=== PATIENT | male | born 1960 | race Caucasian/White ===

== ENCOUNTER 2020-05-04 13:11 | Emergency (ER) | payer BC ==
[~2020-05-04] VITALS: Ht 177.8 cm; Wt 99.8 kg
[2020-05-04] MEDS ORDERED: HYDROMORPHONE 1 MG/1 ML DISP.SYRIN ONE (13:28)
[2020-05-04] MEDS ORDERED: PANTOPRAZOLE SODIUM 40 MG VIAL ONE (13:28)
[2020-05-04] MEDS ORDERED: ONDANSETRON 4 MG/2 ML VIAL ONE (13:28)
[2020-05-04] MEDS ORDERED: PANTOPRAZOLE SODIUM 40 MG VIAL IV ONE (13:30)
[2020-05-04] MEDS ORDERED: ONDANSETRON 4 MG/2 ML VIAL IV ONE (13:30)
[2020-05-04] MEDS ORDERED: HYDROMORPHONE 1 MG/1 ML DISP.SYRIN IV ONE (13:30)
[2020-05-04] MEDS ORDERED: IV NORMAL SALINE 1000 ML BAG IV ONE (13:30)
--- NOTE | 2020-05-04 13:35 | NUR ---
Pt out of ER for CT.
[2020-05-04 13:42] LABS: BASOPHILS # (AUTO) 0.2 K/uL (0.0-8.0); BASOPHILS % (AUTO) 1.8 % (0.0-2.0); EOSINOPHILS # (AUTO) 0.1 K/uL (0.0-0.7); EOSINOPHILS % (AUTO) 0.4 % (0.0-7.0); HEMATOCRIT 41.1 % (36.7-47.1); HEMOGLOBIN 13.7 g/dL (12.5-16.3); LYMPHOCYTES # (AUTO) 1.2 K/uL (20.0-40.0); LYMPHOCYTES % (AUTO) 10.2 % (20.5-51.5); MEAN CORPUSCULAR HEMOGLOBIN 29.6 uug (23.8-33.4); MEAN CORPUSCULAR HGB CONC 33 g/dL (32.5-36.3); MEAN CORPUSCULAR VOLUME 88.7 fL (73.0-96.2); MONOCYTES # (AUTO) 0.5 K/uL (2.0-10.0); MONOCYTES % (AUTO) 4.8 % (0.0-11.0); NEUTROPHILS # (AUTO) 9.3 K/uL (1.8-8.9); NEUTROPHILS % (AUTO) 82.8 % (38.5-71.5); PLATELET COUNT (AUTO) 308 K/uL (152-348); RED BLOOD CELL COUNT(AUTO) 4.64 MIL/uL (4.06-5.63); WHITE BLOOD COUNT (AUTO) 11.2 K/uL (3.6-10.2)
[2020-05-04 13:48] LABS: BILIRUBIN,DIRECT 0.3 mg/dL (0.0-0.2); BILIRUBIN,TOTAL 0.6 mg/dL (0.2-1.0); CREATININE 1.1 mg/dL (0.6-1.3); POTASSIUM 3.2 mmol/L (3.5-5.1); TOTAL PROTEIN, SERUM 6.8 g/dL (6.4-8.2)
[2020-05-04] MEDS ORDERED: POTASSIUM CHLORIDE 20 MEQ TAB.PRT.SR PO ONE (14:00)
[2020-05-04] MEDS ORDERED: POTASSIUM CHLORIDE 20 MEQ TAB.PRT.SR ONE (14:05)
--- NOTE | 2020-05-04 14:10 | NUR ---
Pt denies pain/nausea. Able to tolorate fluids.
--- NOTE | 2020-05-04 14:38 | NUR ---
IV removed. Catheter intact and site benign. Pressure and 4x4 gauze applied to site. No bleeding noted.
[2020-05-04 14:39] VITALS: BP 132/89
--- NOTE | 2020-05-04 14:39 | NUR ---
Patient discharged to home in stable condition. Written and verbal after care instructions given. Patient verbalizes understanding of instructions. Stressed follow up or return to ER for worsening s/s.
== END 2020-05-04 14:40 | disposition home or self-care (01) ==
LOC: ER 13:11
DX: K52.9 Noninfective gastroenteritis and colitis, unspecified (principal); I11.9 Hypertensive heart disease without heart failure; Z20.822 Contact with and (suspected) exposure to COVID-19; K57.30 Diverticulosis of large intestine without perforation or abscess without bleeding
CPT/HCPCS: 71045; 74176; 80048; 80076; 83605; 83690; 84484; 85025; 85730; 87426; 93005; 96361; 96374; 96375; 99285; C9113; J1170; J2405; U0003; 70030-TC; A4663; J7030

== ENCOUNTER 2020-08-20 11:49 | Inpatient (IN) | payer BC ==
[~2020-08-20] VITALS: Ht 177.8 cm; Wt 90.7 kg
[2020-08-20] MEDS ORDERED: MORPHINE SULFATE 2 MG/1 ML DISP.SYRIN IV ONE (12:00)
[2020-08-20] MEDS ORDERED: ONDANSETRON 4 MG/2 ML VIAL IV ONE (12:00)
[2020-08-20] MEDS ORDERED: IV NORMAL SALINE 1000 ML BAG IV ONE (12:00)
[2020-08-20] MEDS ORDERED: ONDANSETRON 4 MG/2 ML VIAL ONE (12:02)
[2020-08-20] MEDS ORDERED: MORPHINE SULFATE 4 MG/1 ML DISP.SYRIN ONE ×2 (12:02→15:59)
[2020-08-20 12:21] LABS: BASOPHILS # (AUTO) 0.1 K/uL (0.0-8.0); BASOPHILS % (AUTO) 0.4 % (0.0-2.0); EOSINOPHILS # (AUTO) 0.2 K/uL (0.0-0.7); EOSINOPHILS % (AUTO) 1.5 % (0.0-7.0); HEMATOCRIT 41.7 % (36.7-47.1); HEMOGLOBIN 13.7 g/dL (12.5-16.3); LYMPHOCYTES % (AUTO) 6.7 % (20.5-51.5); MEAN CORPUSCULAR HGB CONC 33 g/dL (32.5-36.3); MEAN CORPUSCULAR VOLUME 88.1 fL (73.0-96.2); MONOCYTES # (AUTO) 0.8 K/uL (2.0-10.0); MONOCYTES % (AUTO) 5.1 % (0.0-11.0); NEUTROPHILS # (AUTO) 13.6 K/uL (1.8-8.9); NEUTROPHILS % (AUTO) 86.3 % (38.5-71.5); PLATELET COUNT (AUTO) 266 K/uL (152-348); RED BLOOD CELL COUNT(AUTO) 4.74 MIL/uL (4.06-5.63); WHITE BLOOD COUNT (AUTO) 15.7 K/uL (3.6-10.2)
[2020-08-20 12:26] LABS: BILIRUBIN,DIRECT 0.2 mg/dL (0.0-0.2); BILIRUBIN,TOTAL 0.5 mg/dL (0.2-1.0); POTASSIUM 3.8 mmol/L (3.5-5.1); TOTAL PROTEIN, SERUM 6.4 g/dL (6.4-8.2)
[2020-08-20] MEDS ORDERED: PIPERACILLIN SODIUM/TAZOBACTAM 3.375 G in IV DEXTROSE 5% 50 ML IV ONE (12:45)
[2020-08-20] MEDS ORDERED: IOHEXOL 300MG/ML 100 ML INFUS..BTL ONE (12:51)
[2020-08-20] MEDS ORDERED: SWABABLE VALVE TRANSFER SET EA MC ONE (12:52)
[2020-08-20] MEDS ORDERED: IV NORMAL SALINE 250 ML IV ONE (12:52)
[2020-08-20] MEDS ORDERED: PIPERACILLIN/TAZOBACTAM/D5W 50 ML IV ONE (13:32)
[2020-08-20 13:46] LABS: *BILIRUBIN,URIN NEGATIVE (NEGATIVE); *BLOOD, URINE NEGATIVE (NEGATIVE); *CLARITY,URINE CLEAR (CLEAR); *COLOR,URINE YELLOW (YELLOW); *KETONES,URINE NEGATIVE (NEGATIVE); *UROBILINOGEN,URINE 0.2 E.U./dl (NORMAL); LEUKOCYTE ESTERASE ,URINE NEGATIVE (NEGATIVE); NITRITE, URINE NEGATIVE (NEGATIVE); UGLUCOSE NEGATIVE (NEGATIVE)
[2020-08-20 14:00] LABS: *AMPHETAMINE, URINE NEGATIVE (NEGATIVE); *CANNABINOID, URINE POSITIVE (NEGATIVE); *COCCAINE, URINE NEGATIVE (NEGATIVE); *OPIATE, URINE POSITIVE (NEGATIVE); *PHENCYCLIDINE SCREEN,URINE NEGATIVE (NEGATIVE)
[2020-08-20] MEDS ORDERED: MARIJUANA (14:05)
--- NOTE | 2020-08-20 14:05 | NUR ---
Patient is resting comfortably on gurney with eyes closed, calm & breathing easily ,for disposition@this time, NAD.
--- NOTE | 2020-08-20 15:38 | NUR ---
Patient refused to be admitted. Dr Belcher notified.
[2020-08-20] MEDS ORDERED: MORPHINE SULFATE 4 MG/1 ML DISP.SYRIN IV ONE (16:00)
--- NOTE | 2020-08-20 16:07 | NUR ---
Patient is consenting to admission@this time.
[2020-08-20 17:07] VITALS: BP 129/84
[2020-08-20] MEDS ORDERED: LISI1TAB55 PO (17:59)
[2020-08-20] MEDS ORDERED: ATOR40TA PO (18:05)
[2020-08-20] MEDS ORDERED: FINA5TAB11 PO (18:05)
[2020-08-20] MEDS ORDERED: TRAZ-182 PO (18:05)
[2020-08-20] MEDS ORDERED: ONDA4TAB5 PO (18:05)
[2020-08-20] MEDS ORDERED: LAMO100T17 PO (18:05)
[2020-08-20] MEDS ORDERED: BUPR-53 PO (18:05)
[2020-08-20] MEDS ORDERED: ESCI10TA PO (18:05)
[2020-08-20] MEDS ORDERED: TOPI25TA PO (18:05)
[2020-08-20] MEDS ORDERED: TAMS-3 PO (18:05)
[2020-08-20] MEDS ORDERED: PANT40TA49 PO (18:05)
--- NOTE | 2020-08-20 18:12 | NUR ---
Patient was admitted from the ER, IV was accidentally dislodged by patient while changing into a gown. Patient medication list obtained from patients pharmacy in [place]. Patient oriented to room, and call light. Bed in low position, side rails up x2. Call light in reach. Patient stable on room air, Vitals WNL.
[2020-08-20] MEDS ORDERED: Z GUARD REMEDY PASTE 57 GM TUBE TOP PRN (18:30)
[2020-08-20] MEDS ORDERED: HYDROCODONE/APAP 5-325MG TABLET PO PRN (18:30)
[2020-08-20] MEDS ORDERED: ONDANSETRON 4 MG/2 ML VIAL IV PRN (18:30)
[2020-08-20] MEDS ORDERED: ZOLPIDEM 5 MG TABLET PO PRN (18:30)
[2020-08-20] MEDS ORDERED: ACETAMINOPHEN 325 MG TABLET PO PRN (18:30)
[2020-08-20] MEDS ORDERED: MAGNESIUM HYDROXIDE 30 ML LIQUID UDC PO PRN (18:30)
[2020-08-20] MEDS: MORPHINE SULFATE 2 MG/1 ML DISP.SYRIN IV PRN (19:24)
[2020-08-20] MEDS: IV D5 1/2 NS 1000 ML 1,000 ML IV PRN (19:30)
--- NOTE | 2020-08-20 19:42 | NUR ---
Received pt resting in bed. AAO x4. No acute distress noted. C/o 8/10 abdominal pain, PRN IV Morphine given as ordered. IV on left forearm, running D5 1/2 NS at 75cc/ hr. NPO order status maintained, pt educated and aware. Safety measures maintained. Call light and personal items within reach. Will continue to monitor.
[2020-08-20 19:59] VITALS: BP 115/71
[2020-08-21] MEDS: MORPHINE SULFATE 2 MG/1 ML DISP.SYRIN IV PRN ×4 (02:20→17:12)
[2020-08-21 04:55] VITALS: BP 110/68
[2020-08-21 06:25] LABS: BASOPHILS % (AUTO) 0.6 % (0.0-2.0); EOSINOPHILS # (AUTO) 0.3 K/uL (0.0-0.7); EOSINOPHILS % (AUTO) 4.7 % (0.0-7.0); HEMATOCRIT 37.4 % (36.7-47.1); HEMOGLOBIN 12.5 g/dL (12.5-16.3); LYMPHOCYTES % (AUTO) 29.5 % (20.5-51.5); MEAN CORPUSCULAR HEMOGLOBIN 29.7 uug (23.8-33.4); MEAN CORPUSCULAR HGB CONC 34 g/dL (32.5-36.3); MEAN CORPUSCULAR VOLUME 88.7 fL (73.0-96.2); MONOCYTES # (AUTO) 0.6 K/uL (2.0-10.0); MONOCYTES % (AUTO) 8.8 % (0.0-11.0); NEUTROPHILS # (AUTO) 3.7 K/uL (1.8-8.9); NEUTROPHILS % (AUTO) 56.4 % (38.5-71.5); PLATELET COUNT (AUTO) 221 K/uL (152-348); RED BLOOD CELL COUNT(AUTO) 4.22 MIL/uL (4.06-5.63); WHITE BLOOD COUNT (AUTO) 6.6 K/uL (3.6-10.2)
[2020-08-21 06:48] LABS: MAGNESIUM 2.1 mg/dL (1.8-2.4); PHOSPHOROUS 3.6 mg/dL (2.5-4.9); POTASSIUM 3.6 mmol/L (3.5-5.1)
--- NOTE | 2020-08-21 07:30 | NUR ---
START OF SHIFT: pt in bed resting, a/ox4 c/o abd pain. pt on RA no signs of distress, no complaints of pain at this time. pt AMB with BRP, NPO for MRCP procedure. pt has left FA 20g infusing D51/2 NS at 75cc/hr. pt stated "I will go AMA if the GI doctor does not come to see me, I could be doing the same thing at home". MD made aware, bed low and locked, call light within reach, safety precautions in place.
[2020-08-21 08:00] VITALS: BP 100/58
[2020-08-21] MEDS ORDERED: PANTOPRAZOLE SODIUM 40 MG VIAL IV SCH (09:00)
[2020-08-21] MEDS: IV D5 1/2 NS 1000 ML 1,000 ML IV PRN (09:27)
--- NOTE | 2020-08-21 13:05 | NUR ---
pt left via ambulance for MRCP at [facility]. pt took belongings with him
[2020-08-21] MEDS ORDERED: IV D5 1/2 NS 1000 ML 1,000 ML IV PRN (13:45)
--- NOTE | 2020-08-21 14:40 | NUR ---
pt back from procedure, resting in bed, will continue with plan of care.
[2020-08-21 16:07] VITALS: BP 122/77
--- NOTE | 2020-08-21 17:09 | NUR ---
Pt left [facility] according to security cameras. I walked in to pts room at 1705 to check on pt, he was upset that he was still NPO for the night and that he was not going to get his other medications until tomorrow morning. I asked him if he wanted his pain medications since they were due, he agreed and asked for his morphine. I went to get the medication right away and was going to administer the morphine at 1712, when I noticed that the patient was no longer in the room, I notified the charge nurse and change house attendant. Pt left with all belongings. Addendum: 08/21/20 at 1822 by CASPER PRABHAKAR RN pt left with IV in FA and ID band on
[2020-08-21] MEDS ORDERED: TRAZODONE 50 MG TABLET PO SCH (18:00)
--- NOTE | 2020-08-21 18:40 | NUR ---
made aware of pt eloping from hospital
[2020-08-21] MEDS ORDERED: TOPIRAMATE 25 MG TABLET PO SCH (21:00)
[2020-08-21] MEDS ORDERED: ATORVASTATIN 40 MG TABLET PO SCH (21:00)
[2020-08-22] MEDS ORDERED: FINASTERIDE 5 MG TABLET PO SCH (09:00)
[2020-08-22] MEDS ORDERED: HYDROCHLOROTHIAZIDE 12.5 MG CAPSULE PO SCH (09:00)
[2020-08-22] MEDS ORDERED: buPROPion XL 150 MG TAB.SR.24H PO SCH (09:00)
[2020-08-22] MEDS ORDERED: LISINOPRIL PO SCH (09:00)
[2020-08-22] MEDS ORDERED: LISINOPRIL 20 MG TABLET PO SCH (09:00)
[2020-08-22] MEDS ORDERED: TAMSULOSIN HCL 0.4 MG CAP.SR.24H PO SCH (09:00)
[2020-08-22] MEDS ORDERED: LAMOTRIGINE 100 MG TABLET PO SCH (09:00)
[2020-08-22] MEDS ORDERED: HCTZ PO SCH (09:00)
[2020-08-22] MEDS ORDERED: ESCITALOPRAM OXALATE 10 MG TABLET PO SCH (09:00)
== END 2020-08-21 17:10 | disposition left against medical advice (07) | DRG 445 ==
LOC: ER 11:49 → MEDSURG3 16:06
PROVIDERS: ADMIT Student in an Organized Health Care Education/Training Program; ATTEND Student in an Organized Health Care Education/Training Program
DX: K80.50 Calculus of bile duct without cholangitis or cholecystitis without obstruction (principal); K57.32 Diverticulitis of large intestine without perforation or abscess without bleeding; D72.829 Elevated white blood cell count, unspecified; E78.5 Hyperlipidemia, unspecified; I10 Essential (primary) hypertension; K20.90 Esophagitis, unspecified without bleeding; N40.0 Benign prostatic hyperplasia without lower urinary tract symptoms; K57.30 Diverticulosis of large intestine without perforation or abscess without bleeding; K31.7 Polyp of stomach and duodenum; K63.5 Polyp of colon; Z20.822 Contact with and (suspected) exposure to COVID-19; K86.89 Other specified diseases of pancreas
CPT/HCPCS: 36415; 70030-TC; 71045; 74181; 76705; 83690; 83735; 84100; 85025; 85730; 93005; A4663; C9113; G0378; J2270; J2405; J2543; J3490; J7050; Q9967

== ENCOUNTER 2020-08-30 05:53 | Emergency (ER) | payer BC ==
[~2020-08-30] VITALS: Ht 177.8 cm; Wt 91.6 kg
[~2020-08-30 05:53] MED LIST: ATOR40TA PO; BUPR-53 PO; ESCI10TA PO; FINA5TAB11 PO; LAMO100T17 PO; LISI1TAB55 PO; MARIJUANA; ONDA4TAB5 PO; PANT40TA49 PO; TAMS-3 PO; TOPI25TA PO; TRAZ-182 PO
[2020-08-30] MEDS ORDERED: IV NORMAL SALINE 1000 ML BAG IV ONE (06:15)
[2020-08-30] MEDS ORDERED: HYDROMORPHONE 1 MG/1 ML DISP.SYRIN IV ONE ×2 (06:15→07:30)
[2020-08-30] MEDS ORDERED: ONDANSETRON 4 MG/2 ML VIAL IV ONE ×2 (06:15→07:30)
[2020-08-30] MEDS ORDERED: ONDANSETRON 4 MG/2 ML VIAL ONE ×2 (06:22→07:37)
[2020-08-30] MEDS ORDERED: HYDROMORPHONE 2 MG/1 ML DISP.SYRIN ONE ×2 (06:22→07:37)
[2020-08-30 06:26] LABS: BASOPHILS # (AUTO) 0.1 K/uL (0.0-8.0); BASOPHILS % (AUTO) 0.5 % (0.0-2.0); EOSINOPHILS # (AUTO) 0.1 K/uL (0.0-0.7); EOSINOPHILS % (AUTO) 1.2 % (0.0-7.0); HEMATOCRIT 44.6 % (36.7-47.1); HEMOGLOBIN 14.5 g/dL (12.5-16.3); LYMPHOCYTES # (AUTO) 0.7 K/uL (20.0-40.0); LYMPHOCYTES % (AUTO) 7.5 % (20.5-51.5); MEAN CORPUSCULAR HEMOGLOBIN 28.9 uug (23.8-33.4); MEAN CORPUSCULAR HGB CONC 33 g/dL (32.5-36.3); MEAN CORPUSCULAR VOLUME 88.9 fL (73.0-96.2); MONOCYTES # (AUTO) 0.4 K/uL (2.0-10.0); NEUTROPHILS # (AUTO) 8.5 K/uL (1.8-8.9); NEUTROPHILS % (AUTO) 86.8 % (38.5-71.5); PLATELET COUNT (AUTO) 297 K/uL (152-348); RED BLOOD CELL COUNT(AUTO) 5.01 MIL/uL (4.06-5.63); WHITE BLOOD COUNT (AUTO) 9.8 K/uL (3.6-10.2)
[2020-08-30 06:39] LABS: BILIRUBIN,DIRECT 0.1 mg/dL (0.0-0.2); BILIRUBIN,TOTAL 0.4 mg/dL (0.2-1.0); CREATININE 1.1 mg/dL (0.6-1.3); POTASSIUM 3.6 mmol/L (3.5-5.1)
--- NOTE | 2020-08-30 07:05 | NUR ---
Recieved pt in bed, resting w/ both eyes closed, NAD noted.
--- NOTE | 2020-08-30 07:17 | NUR ---
Dr Soto speaking to Pt regarding plan of care.
--- NOTE | 2020-08-30 08:03 | NUR ---
IV removed. Catheter intact and site benign. Pressure and 4x4 gauze applied to site. No bleeding noted.
[2020-08-30 08:04] VITALS: BP 116/68
== END 2020-08-30 08:05 | disposition home or self-care (01) ==
LOC: ER 05:55
DX: K80.50 Calculus of bile duct without cholangitis or cholecystitis without obstruction (principal); J98.11 Atelectasis; Z20.822 Contact with and (suspected) exposure to COVID-19; N40.0 Benign prostatic hyperplasia without lower urinary tract symptoms; I10 Essential (primary) hypertension; Z86.010 Personal history of colon polyps; Z79.899 Other long term (current) drug therapy; E78.5 Hyperlipidemia, unspecified
CPT/HCPCS: 36415; 71045; 74176; 80048; 80076; 83605; 83690; 84484; 85025; 85730; 87426; 93005; 96361; 96374; 96375; 96376; 99285; J1170 ×2; J2405 ×2; U0003; 70030-TC; A4663; J7030

== ENCOUNTER 2020-09-02 14:41 | Inpatient (IN) | payer BC ==
[~2020-09-02] VITALS: Ht 172.7 cm; Wt 90.7 kg
[~2020-09-02 14:41] MED LIST changes: -MARIJUANA; -ONDA4TAB5 PO; -TOPI25TA PO; -TRAZ-182 PO
--- NOTE | 2020-09-02 14:44 | NUR ---
Patient brought in by [id number] for suicidal idea with a plan, [employer] accompanied patient and is at bedside at this time
[2020-09-02] MEDS ORDERED: PANTOPRAZOLE SODIUM 40 MG VIAL IV ONE (14:45)
[2020-09-02] MEDS ORDERED: MORPHINE SULFATE 4 MG/1 ML DISP.SYRIN IV ONE ×2 (14:45→16:30)
[2020-09-02] MEDS ORDERED: IV NORMAL SALINE 1000 ML BAG IV ONE (14:45)
[2020-09-02] MEDS ORDERED: MAG HYDROX/AL HYDROX/SIMETH 30 ML LIQUID UDC PO ONE (14:45)
[2020-09-02] MEDS ORDERED: LIDOCAINE VISCUS 2% 15 ML UDC MM ONE (14:45)
[2020-09-02] MEDS ORDERED: OXYC-133 PO (14:51)
[2020-09-02] MEDS ORDERED: ONDA4TAB5 SL (14:51)
[2020-09-02] MEDS ORDERED: MORPHINE SULFATE 4 MG/1 ML DISP.SYRIN ONE ×2 (14:57→22:01)
[2020-09-02] MEDS ORDERED: MAG HYDROX/AL HYDROX/SIMETH 30 ML LIQUID UDC ONE (14:58)
[2020-09-02] MEDS ORDERED: PANTOPRAZOLE SODIUM 40 MG VIAL ONE (14:58)
[2020-09-02] MEDS ORDERED: LIDOCAINE VISCUS 2% 15 ML UDC ONE (14:58)
[2020-09-02 15:14] LABS: BASOPHILS # (AUTO) 0.1 K/uL (0.0-8.0); BASOPHILS % (AUTO) 0.6 % (0.0-2.0); EOSINOPHILS % (AUTO) 0.3 % (0.0-7.0); HEMATOCRIT 43.9 % (36.7-47.1); HEMOGLOBIN 14.5 g/dL (12.5-16.3); LYMPHOCYTES # (AUTO) 0.9 K/uL (20.0-40.0); LYMPHOCYTES % (AUTO) 9.8 % (20.5-51.5); MEAN CORPUSCULAR HEMOGLOBIN 29.3 uug (23.8-33.4); MEAN CORPUSCULAR HGB CONC 33 g/dL (32.5-36.3); MEAN CORPUSCULAR VOLUME 88.5 fL (73.0-96.2); MONOCYTES # (AUTO) 0.9 K/uL (2.0-10.0); MONOCYTES % (AUTO) 9.4 % (0.0-11.0); NEUTROPHILS # (AUTO) 7.7 K/uL (1.8-8.9); NEUTROPHILS % (AUTO) 79.9 % (38.5-71.5); PLATELET COUNT (AUTO) 303 K/uL (152-348); RED BLOOD CELL COUNT(AUTO) 4.96 MIL/uL (4.06-5.63); WHITE BLOOD COUNT (AUTO) 9.7 K/uL (3.6-10.2)
[2020-09-02 15:17] LABS: ETHANOL < 3 MG/DL (0-0)
[2020-09-02 15:23] LABS: ACETAMINOPHEN 10.2 ug/mL (10-30); ALANINE AMINOTRANSFERASE 35 U/L (16-63); ALKALINE PHOSPHATASE 120 U/L (50-136); ASPARTATE AMINOTRANSFERASE 15 U/L (15-37); BILIRUBIN,DIRECT 0.1 mg/dL (0.0-0.2); BILIRUBIN,TOTAL 0.3 mg/dL (0.2-1.0); CARBON DIOXIDE 31 mmol/L (21-32); CHLORIDE 102 mmol/L (98-107); GLUCOSE 126 mg/dL (74-106); LIPASE 281 U/L (73-393); POTASSIUM 3.5 mmol/L (3.5-5.1); TOTAL PROTEIN, SERUM 6.6 g/dL (6.4-8.2); UREA NITROGEN, BLOOD 19 mg/dL (7-18)
--- NOTE | 2020-09-02 15:30 | NUR ---
Patient assisted to CT with [employer]
[2020-09-02] MEDS ORDERED: METRONIDAZOLE 500 MG/NS 100 ML PIGGYBACK IV ONE (16:30)
[2020-09-02] MEDS ORDERED: CEFTRIAXONE 1 G in IV DEXTROSE 5% 50 ML IV ONE (16:30)
[2020-09-02] MEDS ORDERED: CEFTRIAXONE /D5W 50ML IVPB **ER PYXIS IV ONE (17:14)
[2020-09-02] MEDS ORDERED: LORAZEPAM 2 MG/1 ML VIAL ONE (17:48)
--- NOTE | 2020-09-02 17:53 | NUR ---
design tech noted at bedside
--- NOTE | 2020-09-02 17:59 | NUR ---
Patient will go to room 310
[2020-09-02] MEDS ORDERED: LORAZEPAM 2 MG/1 ML VIAL IV ONE (18:45)
--- NOTE | 2020-09-02 19:13 | NUR ---
received patient sleeping arusable to to touch , iv intact , on RA incotinentof urine
[2020-09-02] MEDS ORDERED: METRONIDAZOLE 500 MG/NS 100ML 0 ML IV ONE (19:28)
[2020-09-02 20:07] LABS: ACETAMINOPHEN 2.2 ug/mL (10-30); BILIRUBIN,DIRECT 0.1 mg/dL (0.0-0.2); BILIRUBIN,TOTAL 0.3 mg/dL (0.2-1.0); TOTAL PROTEIN, SERUM 6.1 g/dL (6.4-8.2)
[2020-09-02 21:06] LABS: *BILIRUBIN,URIN 2+ (NEGATIVE); *BLOOD, URINE 1+ (NEGATIVE); *CLARITY,URINE CLEAR (CLEAR); *COLOR,URINE YELLOW (YELLOW); *KETONES,URINE 4+ (NEGATIVE); LEUKOCYTE ESTERASE ,URINE NEGATIVE (NEGATIVE); NITRITE, URINE NEGATIVE (NEGATIVE); UGLUCOSE NEGATIVE (NEGATIVE)
[2020-09-02 21:08] LABS: WBC,URINE 0-3 /HPF (0-3)
[2020-09-02 21:13] LABS: *AMPHETAMINE, URINE NEGATIVE (NEGATIVE); *CANNABINOID, URINE POSITIVE (NEGATIVE); *COCCAINE, URINE POSITIVE (NEGATIVE); *OPIATE, URINE POSITIVE (NEGATIVE); *PHENCYCLIDINE SCREEN,URINE NEGATIVE (NEGATIVE)
--- NOTE | 2020-09-02 21:23 | NUR ---
called and gave report evonie about diagnosis , mental status , medications given lab works
[2020-09-02] MEDS ORDERED: MORPHINE SULFATE 2 MG/1 ML DISP.SYRIN IV ONE (21:45)
--- NOTE | 2020-09-02 22:14 | NUR ---
patient was given morphine 159/89 hr 10, oxygen saturation of 96 % ra , awake oriented , able to follow command
[2020-09-02 22:30] VITALS: BP 139/58
--- NOTE | 2020-09-02 22:46 | NUR ---
Patient noted with hard restraints on bilateral wrist with the pizano. Er nurse called to unlocked the restraints.Replaced with bilateral soft restraints.
--- NOTE | 2020-09-02 22:55 | NUR ---
Patient brought to med surg unit from ER via gurney accompanied by Er nurse.Dx of Abdominal pain and SI.Patient awake, uncooperative, yelling and screaming .On RA .No s/s of distress noted.Iv on right AC 20 patent and intact.Patient unable to redirect,trying to get out of bed with episodes of combative and trying to hit his head on bed rails.Stated he's in a lot of abd'l and back pain.Morphine 4mg Iv was given .Safety measures implemented.1:1 sit[address] bedside[address] and Dr[address] Broussard made aware with new order given,noted and carried out.Dr Broussard ordered Zyprexa 5 mg IM x1 dose . Administered medication .No a/r noted with good effect.Bilateral restraint in place.VSS. Will continue to monitor.
[2020-09-02] MEDS ORDERED: OLANZAPINE 10 MG VIAL IM ONE (23:00)
[2020-09-02] MEDS: IV 1/2NS 1000 ML 1,000 ML IV PRN (23:28)
[2020-09-03] MEDS: MORPHINE SULFATE 2 MG/1 ML DISP.SYRIN IV PRN ×4 (01:35→22:34)
[2020-09-03] MEDS: ONDANSETRON 4 MG/2 ML VIAL IV PRN ×2 (02:09→18:32)
[2020-09-03] MEDS: FLUTICASONE PROP NASAL SPRAY 16 GM BOTTLE NS SCH ×2 (02:13→08:34)
[2020-09-03 04:00] VITALS: BP 132/62
[2020-09-03] MEDS: PANTOPRAZOLE SODIUM 40 MG TABLET.DR PO SCH (06:42)
--- NOTE | 2020-09-03 07:15 | NUR ---
received patient in bed awake and alert, restraints removed and assessed skin, patient taken to restroom, patient being cooperative. 1:1 sitter at bedside, no complains of any pain or discomfort noted at this time. will continue to monitor.
[2020-09-03 07:30] VITALS: BP 126/68
--- NOTE | 2020-09-03 08:00 | NUR ---
Patient reports that he was feeling manic yesterday but is feeling better now. He requested that the restraints be removed and he will not try to attack staff again. He says he has a history of depression, anxiety and bipolar disorder. He states that he took the vicodin 2-3 every couple of hours because of abdominal pain. He stated also that he doesn't want to kill himself, he said that to police because he did not want to be restrained. Patient currently has a 1:1 sitter. Safety precautions are in place. Will continue to monitor.
[2020-09-03] MEDS: LAMOTRIGINE 100 MG TABLET PO SCH (08:33)
[2020-09-03 14:23] LABS: BASOPHILS % (AUTO) 0.3 % (0.0-2.0); EOSINOPHILS # (AUTO) 0.1 K/uL (0.0-0.7); EOSINOPHILS % (AUTO) 1.2 % (0.0-7.0); HEMATOCRIT 41.6 % (36.7-47.1); HEMOGLOBIN 13.9 g/dL (12.5-16.3); LYMPHOCYTES # (AUTO) 1.3 K/uL (20.0-40.0); LYMPHOCYTES % (AUTO) 16.1 % (20.5-51.5); MEAN CORPUSCULAR HEMOGLOBIN 29.4 uug (23.8-33.4); MEAN CORPUSCULAR HGB CONC 33 g/dL (32.5-36.3); MEAN CORPUSCULAR VOLUME 88.3 fL (73.0-96.2); MONOCYTES # (AUTO) 0.6 K/uL (2.0-10.0); NEUTROPHILS # (AUTO) 6.2 K/uL (1.8-8.9); NEUTROPHILS % (AUTO) 75.4 % (38.5-71.5); PLATELET COUNT (AUTO) 266 K/uL (152-348); RED BLOOD CELL COUNT(AUTO) 4.72 MIL/uL (4.06-5.63); WHITE BLOOD COUNT (AUTO) 8.2 K/uL (3.6-10.2)
[2020-09-03 14:34] LABS: CREATININE 0.7 mg/dL (0.6-1.3); PHOSPHOROUS 2.8 mg/dL (2.5-4.9); POTASSIUM 3.7 mmol/L (3.5-5.1)
[2020-09-03 14:58] LABS: ACETAMINOPHEN < 2.0 ug/mL (10-30)
[2020-09-03 15:03] LABS: THYROID STIMULATING HORMONE 0.564 mIU/mL (0.358-3.740)
[2020-09-03 15:16] VITALS: BP 119/65
[2020-09-03] MEDS: IV 1/2NS 1000 ML 1,000 ML IV PRN (15:23)
[2020-09-03] MEDS ORDERED: OLANZAPINE 10 MG VIAL IM PRN (16:00)
[2020-09-03] MEDS: LAMOTRIGINE 25 MG TABLET PO SCH (17:28)
--- NOTE | 2020-09-03 18:40 | NUR ---
patient complaining of abdominal pain and nausea, provided pain and nausea medication. patient in bed, on room air saturation at 96%. patient cooperative. sitter at bedside. will report to oncoming shift.
[2020-09-03 20:00] VITALS: BP 121/61
[2020-09-03] MEDS: ATORVASTATIN 40 MG TABLET PO SCH (20:17)
[2020-09-03] MEDS: TAMSULOSIN HCL 0.4 MG CAP.SR.24H PO SCH (20:17)
[2020-09-03] MEDS ORDERED: MIRTAZAPINE 15 MG TABLET PO SCH (21:00)
[2020-09-03] MEDS: MAG HYDROX/AL HYDROX/SIMETH 30 ML LIQUID UDC PO PRN (21:00)
[2020-09-04 04:00] VITALS: BP 124/65
[2020-09-04] MEDS: IV 1/2NS 1000 ML 1,000 ML IV PRN (05:04)
[2020-09-04] MEDS: MORPHINE SULFATE 2 MG/1 ML DISP.SYRIN IV PRN ×2 (05:04→11:15)
[2020-09-04] MEDS: MAG HYDROX/AL HYDROX/SIMETH 30 ML LIQUID UDC PO PRN ×4 (05:09→20:30)
[2020-09-04] MEDS: PANTOPRAZOLE SODIUM 40 MG TABLET.DR PO SCH (06:27)
--- NOTE | 2020-09-04 06:34 | NUR ---
Pt slept intermittently throughout the night. C/o of abdominal pain, subsided with Morphine and Maalox. Pt refuses to sign MRCP consent at this time. Education of importance of scan provided, pt still declined at this time. Will endorse to oncoming nurse to try and re-educate patient on importance of scan. Otherwise, patient very pleasant. IV site patent and running ordered fluids. Tolerated all mediations well. 1:1 sitter at bedside. 5150 hold up 09/05 at 1530. Pt anxious about wanting to go home to "pay bills." Educated that hold is not up until tomorrow and that he cannot leave at this time. Patient understood. Safety and comfort provided. Bed locked and in lowest position. No other issues or concerns at this time, will endorse to day shift.
--- NOTE | 2020-09-04 07:30 | NUR ---
Received patient in bed awake and alert and oriented times 4. Patient being calm and cooperative. Patient has a 1:1 sitter at bedside, no complains of any pain or discomfort noted at this time. Safety precautions are in pain. Will continue to monitor.
[2020-09-04 07:38] VITALS: BP 135/77
[2020-09-04] MEDS: LAMOTRIGINE 100 MG TABLET PO SCH (09:11)
[2020-09-04] MEDS: FLUTICASONE PROP NASAL SPRAY 16 GM BOTTLE NS SCH (09:11)
[2020-09-04 11:01] LABS: BASOPHILS % (AUTO) 0.5 % (0.0-2.0); EOSINOPHILS # (AUTO) 0.1 K/uL (0.0-0.7); EOSINOPHILS % (AUTO) 1.5 % (0.0-7.0); HEMOGLOBIN 13.2 g/dL (12.5-16.3); LYMPHOCYTES # (AUTO) 1.6 K/uL (20.0-40.0); LYMPHOCYTES % (AUTO) 17.8 % (20.5-51.5); MEAN CORPUSCULAR HEMOGLOBIN 29.2 uug (23.8-33.4); MEAN CORPUSCULAR HGB CONC 31 g/dL (32.5-36.3); MONOCYTES # (AUTO) 0.7 K/uL (2.0-10.0); MONOCYTES % (AUTO) 7.6 % (0.0-11.0); NEUTROPHILS # (AUTO) 6.4 K/uL (1.8-8.9); NEUTROPHILS % (AUTO) 72.6 % (38.5-71.5); PLATELET COUNT (AUTO) 151 K/uL (152-348); RED BLOOD CELL COUNT(AUTO) 4.52 MIL/uL (4.06-5.63); WHITE BLOOD COUNT (AUTO) 8.9 K/uL (3.6-10.2)
[2020-09-04 11:09] LABS: BILIRUBIN,TOTAL 0.3 mg/dL (0.2-1.0); TOTAL PROTEIN, SERUM 5.7 g/dL (6.4-8.2)
[2020-09-04 11:48] VITALS: BP 109/72
[2020-09-04] MEDS ORDERED: NEUTRA PHOS PACKET PO ONE (13:00)
[2020-09-04] MEDS ORDERED: POTASSIUM CHLORIDE 20 MEQ TAB.PRT.SR PO ONE (13:00)
[2020-09-04] MEDS ORDERED: OLANZAPINE 5 MG TABLET PO PRN (13:15)
[2020-09-04] MEDS ORDERED: OLANZAPINE 2.5 MG TABLET PO PRN (13:30)
[2020-09-04 16:21] VITALS: BP 110/74
[2020-09-04] MEDS: LAMOTRIGINE 25 MG TABLET PO SCH (17:45)
[2020-09-04] MEDS: FINASTERIDE 5 MG TABLET PO SCH (17:45)
--- NOTE | 2020-09-04 18:59 | NUR ---
Patient is left resting in bed no sign of distress noted. Gave medication as ordered. Patient still has a 1:1 sitter. Safety precautions are in place. Will endorse to the oncoming shift.
[2020-09-04 19:18] VITALS: BP 118/74
[2020-09-04] MEDS: TAMSULOSIN HCL 0.4 MG CAP.SR.24H PO SCH (20:30)
[2020-09-04] MEDS: ATORVASTATIN 40 MG TABLET PO SCH (20:31)
[2020-09-04] MEDS ORDERED: OLANZAPINE 2.5 MG TABLET PO SCH (21:00)
[2020-09-05 02:20] VITALS: BP 123/72
[2020-09-05 04:00] VITALS: BP 121/72
[2020-09-05] MEDS: PANTOPRAZOLE SODIUM 40 MG TABLET.DR PO SCH (06:05)
--- NOTE | 2020-09-05 06:44 | NUR ---
Pt slept intermittently throughout the night. No IV noted upon start of shift. Pt states that it was removed due to tenderness and he does not want another one at this time. Jero Biswas DNP notified that patient did not want IV or IV fluids at this time even though he will also be NPO after midnight for MRCP procedure. Consent signed and is in chart for MRCP. New IV placed for safety precautions during procedure in right FA #[id number]. Pt NPO after midnight. Safety and comfort provided, no other issues or concerns at this time. Will endorse to day shift.
[2020-09-05 08:00] VITALS: BP 104/77
[2020-09-05] MEDS: LAMOTRIGINE 100 MG TABLET PO SCH (08:03)
[2020-09-05] MEDS: FINASTERIDE 5 MG TABLET PO SCH (08:03)
[2020-09-05] MEDS: FLUTICASONE PROP NASAL SPRAY 16 GM BOTTLE NS SCH (08:03)
[2020-09-05 10:18] LABS: BASOPHILS % (AUTO) 0.5 % (0.0-2.0); EOSINOPHILS # (AUTO) 0.2 K/uL (0.0-0.7); EOSINOPHILS % (AUTO) 2.4 % (0.0-7.0); HEMATOCRIT 38.6 % (36.7-47.1); HEMOGLOBIN 12.9 g/dL (12.5-16.3); LYMPHOCYTES # (AUTO) 1.2 K/uL (20.0-40.0); LYMPHOCYTES % (AUTO) 17.9 % (20.5-51.5); MEAN CORPUSCULAR HEMOGLOBIN 29.6 uug (23.8-33.4); MEAN CORPUSCULAR HGB CONC 34 g/dL (32.5-36.3); MEAN CORPUSCULAR VOLUME 88.4 fL (73.0-96.2); MONOCYTES # (AUTO) 0.6 K/uL (2.0-10.0); MONOCYTES % (AUTO) 8.5 % (0.0-11.0); NEUTROPHILS # (AUTO) 4.8 K/uL (1.8-8.9); NEUTROPHILS % (AUTO) 70.7 % (38.5-71.5); PLATELET COUNT (AUTO) 258 K/uL (152-348); RED BLOOD CELL COUNT(AUTO) 4.36 MIL/uL (4.06-5.63); WHITE BLOOD COUNT (AUTO) 6.7 K/uL (3.6-10.2)
[2020-09-05 10:20] LABS: CREATININE 0.8 mg/dL (0.6-1.3); MAGNESIUM 2.1 mg/dL (1.8-2.4); PHOSPHOROUS 2.7 mg/dL (2.5-4.9); POTASSIUM 4.3 mmol/L (3.5-5.1)
--- NOTE | 2020-09-05 11:10 | NUR ---
patient placed on 14 days hold by , 14 days hold faxed to court. 14days hold place in pt's chart by [place] RN.
--- NOTE | 2020-09-05 11:30 | NUR ---
Placed original 14 day hold in patients chart witnessed by Kevin charge nurse.
[2020-09-05 12:12] VITALS: BP 117/76
[2020-09-05 16:00] VITALS: BP 112/71
[2020-09-05] MEDS: LAMOTRIGINE 25 MG TABLET PO SCH (16:04)
[2020-09-05 19:20] VITALS: BP 127/75
--- NOTE | 2020-09-05 19:30 | NUR ---
RECEIVED PT AWAKE, ALERT AND ORIENTEDX4. PT IN NO ACUTE DISTRESS. PT WITH NO SUICIDAL IDEATION. SITTER AT BEDSIDE. SAFETY AND COMFORT PROVIDED. WILL CONTINUE TO MONITOR.
[2020-09-05] MEDS: TAMSULOSIN HCL 0.4 MG CAP.SR.24H PO SCH (20:12)
[2020-09-05] MEDS: ATORVASTATIN 40 MG TABLET PO SCH (20:12)
[2020-09-05] MEDS ORDERED: OLANZAPINE 5 MG TABLET PO SCH (21:00)
[2020-09-05] MEDS ORDERED: OLANZAPINE 2.5 MG TABLET PO SCH (21:00)
[2020-09-06] MEDS: PANTOPRAZOLE SODIUM 40 MG TABLET.DR PO SCH (06:12)
--- NOTE | 2020-09-06 06:18 | NUR ---
PT SLEPT 5 H. PT IN NO ACUTE DISTRESS. PRESCRIBED MEDICATION GIVEN AND PT TOLERATED IT WELL. ZYPREXA 2.5 MG PRN GIVEN AT 0008H. SAFETY AND COMFORT PROVIDED. SITTER AT BEDSIDE FOR SAFETY. ALL NEEDS ARE MET. VITAL SIGNS WITHIN NORMAL LIMIT. WILL ENDORSE TO INCOMING NURSE FOR CONTINUITY OF CARE.
--- NOTE | 2020-09-06 07:30 | NUR ---
Received patient in bed awake and alert and oriented times 4. Patient being calm and cooperative. Patient has a 1:1 sitter at bedside, no complains of any pain or discomfort noted at this time. Patient is on room air. No IV access. Safety precautions are in pain. Will continue to monitor.
[2020-09-06 08:14] VITALS: BP 119/68
[2020-09-06] MEDS: FLUTICASONE PROP NASAL SPRAY 16 GM BOTTLE NS SCH (09:13)
[2020-09-06] MEDS: LAMOTRIGINE 100 MG TABLET PO SCH (09:13)
[2020-09-06] MEDS: FINASTERIDE 5 MG TABLET PO SCH (09:13)
[2020-09-06 11:56] VITALS: BP 112/66
--- NOTE | 2020-09-06 14:00 | NUR ---
Patient is stable with no sign of distress noted. Patient is discharged to mental health unit on a 5250 hold that expires on the 09/18. All medications given as ordered. All discharge paperwork completed and signed. Pt has no IV access. Sitter to walk patient down to the Geropsych unit. Patient discharge teaching completed. Belongings list completed and signed.
[2020-09-06] MEDS ORDERED: OLANZAPINE 5 MG TABLET PO SCH (21:00)
== END 2020-09-06 14:40 | disposition home or self-care (01) | DRG 445 ==
LOC: ER 14:41 → MEDSURG3 20:52
PROVIDERS: ADMIT Hospitalist; ATTEND Nurse Practitioner Acute Care
DX: K83.8 Other specified diseases of biliary tract (principal); R45.851 Suicidal ideations; J98.11 Atelectasis; N30.90 Cystitis, unspecified without hematuria; E78.5 Hyperlipidemia, unspecified; I10 Essential (primary) hypertension; K29.70 Gastritis, unspecified, without bleeding; K57.30 Diverticulosis of large intestine without perforation or abscess without bleeding; Z87.19 Personal history of other diseases of the digestive system; F32.9 Major depressive disorder, single episode, unspecified; F12.90 Cannabis use, unspecified, uncomplicated; Z79.899 Other long term (current) drug therapy; F19.10 Other psychoactive substance abuse, uncomplicated; F41.9 Anxiety disorder, unspecified; K20.90 Esophagitis, unspecified without bleeding; E83.42 Hypomagnesemia; N40.0 Benign prostatic hyperplasia without lower urinary tract symptoms; F10.21 Alcohol dependence, in remission; Z91.19 Patient's noncompliance with other medical treatment and regimen; Z91.14 Patient's other noncompliance with medication regimen
CPT/HCPCS: 36415; 70030-TC; 71045; 74181; 76705; 83690; 83735; 84100; 84443; 85025; 93005; A4663; C9113; G0378; G0480; J0696; J2060; J2270; J2358; J2405; J3490; J3535; J7030; J7060

== ENCOUNTER 2020-09-06 14:51 | Inpatient (IN) | payer OTHER ==
[~2020-09-06] VITALS: Ht 177.8 cm; Wt 87.1 kg
[~2020-09-06 14:51] MED LIST changes: +ONDA4TAB5 SL; +OXYC-133 PO
[2020-09-06] MEDS ORDERED: TEMAZEPAM 7.5 MG CAPSULE PO PRN (15:30)
[2020-09-06] MEDS ORDERED: ACETAMINOPHEN 325 MG TABLET PO PRN (15:30)
[2020-09-06] MEDS ORDERED: BLOOD SUGAR DIAGNOSTIC 1 EACH STRIP VI ONE (15:30)
[2020-09-06] MEDS ORDERED: LORAZEPAM 0.5 MG TABLET PO PRN (15:30)
[2020-09-06] MEDS ORDERED: MAG HYDROX/AL HYDROX/SIMETH 30 ML LIQUID UDC PO PRN (15:30)
[2020-09-06] MEDS ORDERED: MAGNESIUM HYDROXIDE 30 ML LIQUID UDC PO PRN (15:30)
[2020-09-06 15:57] VITALS: BP 124/82
--- NOTE | 2020-09-06 17:10 | NUR ---
Per 5150 DTS due to crying on bed with abdominal pain, he wanted to kill himself by consuming unknown amount of pills due to having abdominal pain.He suffers from bipolar disorder, subject is a danger to himself. While at the hospital subject stated to officers to shoot him. On 09/05/20, place on 5250 DTS due to patient with depression, severe pain and suicidal ideation by hanging himself especially if pain is not controlled.on face to face assessment patient is alert and oriented x4, denies any SI/HI,ambulating and self care. Dr. Broussard notified for Admission .
[2020-09-06] MEDS ORDERED: ONDANSETRON HCL 4 MG TABLET PO PRN (19:30)
[2020-09-06] MEDS ORDERED: HYDROCODONE/APAP 5-325MG TABLET PO PRN (19:30)
[2020-09-06] MEDS ORDERED: HOME MED MISCELLANEOUS XX SCH (19:30)
[2020-09-06] MEDS: LISINOPRIL 20 MG TABLET PO SCH (19:36)
[2020-09-06 20:06] VITALS: BP 109/75
[2020-09-06] MEDS: HYDROCHLOROTHIAZIDE 12.5 MG CAPSULE PO SCH (20:26)
[2020-09-06] MEDS: TEMAZEPAM 7.5 MG CAPSULE PO PRN (22:56)
[2020-09-07] MEDS: TEMAZEPAM 7.5 MG CAPSULE PO PRN (00:28)
--- NOTE | 2020-09-07 06:07 | NUR ---
Received patient in the day room sitting with his feet up on the table. Patient had multiple complaints in regards to his medications and transfer from up stairs. When asked about being suicidal, the patient blamed his actions on " Being out of my mind on pain medications that I was taking for my gut pain". " I do not remember being in the ER or much of anything for that matter. " Dredging Inspector noticed this patient having difficulty staying on the topic and anxious. A PRN for sleep was given per request with minimal effect, so a repeat dose was given per order. Patients total sleep hour were 5.00. This patient is up early to shower thia am. No SI or HI at this time, continuing to monitor for safety, anxiety and pain.
[2020-09-07 07:30] VITALS: BP 115/74
--- NOTE | 2020-09-07 07:30 | NUR ---
received patient alert oriented x4, patient calm cooperative , patient in his bed, minimizes symptoms, patient verbalizes that he slept good last night, patient seen by Dr. Broussard, examined and orders was made, patient was on monitoring [id number] for safety and suicidal ideation, patient calm and joined the group therapy and was seen staying mostly in the recreational therapy room
[2020-09-07] MEDS: FINASTERIDE 5 MG TABLET PO SCH (08:21)
[2020-09-07] MEDS: HYDROCHLOROTHIAZIDE 12.5 MG CAPSULE PO SCH (08:21)
[2020-09-07] MEDS: ATORVASTATIN 40 MG TABLET PO SCH (08:21)
[2020-09-07] MEDS: LISINOPRIL 20 MG TABLET PO SCH (08:21)
--- NOTE | 2020-09-07 08:29 | NUR ---
UR Note: Auth# [id number]. Per intake, pt is approved three days 09/06/2020 to 09/08/2020 by case hardener Alia Lay ([phone]). Next review date for concurrent review is due on 09/08/2020 ([phone]).
--- NOTE | 2020-09-07 08:33 | NUR ---
Firearms Report: Bait Maker completed and submitted a [employer] firearms report for 5150 grave disability certification. A copy of report has been placed in patient chart.
[2020-09-07] MEDS ORDERED: PANTOPRAZOLE SODIUM 40 MG TABLET.DR PO SCH (09:00)
[2020-09-07] MEDS ORDERED: TAMSULOSIN HCL 0.4 MG CAP.SR.24H PO SCH (09:00)
[2020-09-07] MEDS: LAMOTRIGINE 100 MG TABLET PO SCH (10:15)
--- NOTE | 2020-09-07 10:25 | NUR ---
Initial Discharge Plan: Patient lives at home [address], [place] [address]; ([phone]). Patient would want to return back home. SW contacted patient's daughter Marybeth ([phone]) to discuss patient's discharge and treatment plan, however, was unavailable and this SW will attempt again. DILLON will work with the MD, treatment team, and family to help coordinate proper discharge.
--- NOTE | 2020-09-07 10:25 | NUR ---
SW Family Contact: SW contacted patient's daughter Marybeth ([phone]) to discuss patient's discharge and treatment plan, however, was unavailable and this SW will attempt again.
--- NOTE | 2020-09-07 10:41 | NUR ---
Coordination of Care: Patient will follow up with Dr. Sweeney (Psychiatrist) located [id number] [place] [address]; ([phone]) appointment on September 13 at 1:30PM via zoom scheduled with administrative receptionist Gia. Patient will follow up with (Medical Billing Service) Dr. Taiwo Hardy [facility] [address], [place] [address]; ([phone]) appointment on 09/12/2020 at 8:20am via telehealth scheduled through administrative receptionist Samantha.
--- NOTE | 2020-09-07 11:00 | NUR ---
Substance Abuse Intervention: Patient was provided with a brief substance abuse intervention and referred to [facility] ([phone]), [facility] ([phone]), and [facility] ([phone]) for substance abuse.
--- NOTE | 2020-09-07 13:20 | NUR ---
DILLON Individual Therapy: artificial marble worker met with patient for brief counseling to help address patients presenting problem suicidal ideation. Patient presented with euthymic mood. Patient expressed that he only had "thoughts of wanting to harm himself". Patient currently denies any thoughts of harming self. 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 SW actively listened and provided emotional support.
--- NOTE | 2020-09-07 14:58 | NUR ---
SW Family Contact: Patients brother Pool ([phone]) will pharmacy picking technician pt at 12PM. This SW contacted brother and confirmed. Pt discussed treatment and discharge plan as well.
[2020-09-07 16:03] VITALS: BP 101/69
[2020-09-07 20:06] VITALS: BP 112/68
[2020-09-07] MEDS ORDERED: OLANZAPINE 5 MG TABLET PO SCH (21:00)
--- NOTE | 2020-09-08 06:09 | NUR ---
Pt asleep at this time w/ no s/s of distress. Slept well, no complaints of pain during the shift. Needs attended to in a timely manner, safety precautions in place. Pleasant disposition noted. Cooperative with care, compliant with meds. Frequent checks done.
[2020-09-08] MEDS ORDERED: PANTOPRAZOLE SODIUM 40 MG TABLET.DR PO SCH (07:00)
--- NOTE | 2020-09-08 08:01 | NUR ---
SW Discharge Note: Patient will be discharged home to [address], [place] [address]; ([phone]). Patient's brother Pool ([phone]) will bean picker machine operator pt at 12PM. Patients daughter Marybeth, ([phone]) is aware and agreeable to patients discharge. Upon discharge, patient appear to be calm, cooperative and happy to be going home. Patient denies suicidal and homicidal ideation. Patient denies visual/auditory hallucinations. Patient is alert and oriented x4. Patient will follow up with Dr. Sweeney (Psychiatrist) located [id number] [place] [address]; ([phone]) appointment on September 13 at 1:30PM via zoom scheduled with phys therapist Gia. Patient will follow up with (Plant Pathologist) Dr. Maravilla [address] [place] [address] [address], [place] [address]; ([phone]) appointment on 09/12/2020 at 8:20am via telehealth scheduled through phys therapist Samantha. Patient was provided referrals to the following substance abuse programs for substance abuse: [facility] ([phone]); [facility] [address] [place] [address] ([phone]); [address] [place] [address] ([phone]); [facility] ([phone]); [facility] ([phone]); [facility] ([phone]); [facility] ([phone]). Patient presented with euthymic mood and congruent affect.
[2020-09-08 08:19] VITALS: BP 106/59
[2020-09-08] MEDS: LAMOTRIGINE 100 MG TABLET PO SCH (08:19)
[2020-09-08] MEDS: LISINOPRIL 20 MG TABLET PO SCH (08:19)
[2020-09-08] MEDS: FINASTERIDE 5 MG TABLET PO SCH (08:19)
[2020-09-08] MEDS: ATORVASTATIN 40 MG TABLET PO SCH (08:19)
[2020-09-08] MEDS: HYDROCHLOROTHIAZIDE 12.5 MG CAPSULE PO SCH (08:20)
--- NOTE | 2020-09-08 08:57 | NUR ---
RECEIVED PATIENT CALM COOPERATIVE AOX4, PATIENT DENIES SI AND HI, PATIENT FOR DISCHARGE TO HOME, PATIENT ARRANGE TO BE HYDROTEL OPERATOR BY HIS BROTHER TODAY, PATIENT MEDICATION WAS GIVEN AND BREAKFAST, PATIENT HOME INSTRUCTION AND APPOINTMENT WAS SET, DISCHARGE TO HOME, MD MADE AWARE
[2020-09-08] MEDS ORDERED: TAMSULOSIN HCL 0.4 MG CAP.SR.24H PO SCH (21:00)
== END 2020-09-08 08:59 | disposition home or self-care (01) | DRG 885 ==
LOC: GPS 14:51
PROVIDERS: ADMIT Psychiatry & Neurology Psychosomatic Medicine; ATTEND Nurse Practitioner Acute Care
DX: F31.9 Bipolar disorder, unspecified (principal); R45.851 Suicidal ideations; F19.10 Other psychoactive substance abuse, uncomplicated; E78.5 Hyperlipidemia, unspecified; F17.210 Nicotine dependence, cigarettes, uncomplicated; F41.9 Anxiety disorder, unspecified; I10 Essential (primary) hypertension; Z91.14 Patient's other noncompliance with medication regimen; N40.0 Benign prostatic hyperplasia without lower urinary tract symptoms; F29 Unspecified psychosis not due to a substance or known physiological condition; K57.90 Diverticulosis of intestine, part unspecified, without perforation or abscess without bleeding; K29.70 Gastritis, unspecified, without bleeding; K82.8 Other specified diseases of gallbladder

== ENCOUNTER 2020-09-29 08:47 | Inpatient (IN) | payer BC, OTHER ==
[~2020-09-29] VITALS: Ht 177.8 cm; Wt 88.5 kg
[~2020-09-29 08:47] MED LIST changes: -BUPR-53 PO; -ESCI10TA PO; -LAMO100T17 PO
[2020-09-29] MEDS ORDERED: MORPHINE SULFATE 2 MG/1 ML DISP.SYRIN IV ONE (09:00)
[2020-09-29] MEDS ORDERED: IV NORMAL SALINE 1000 ML BAG IV ONE (09:00)
[2020-09-29] MEDS ORDERED: IV NORMAL SALINE 250 ML IV ONE (09:02)
[2020-09-29] MEDS ORDERED: IOHEXOL 300MG/ML 100 ML INFUS..BTL ONE (09:02)
[2020-09-29] MEDS ORDERED: SWABABLE VALVE TRANSFER SET EA MC ONE ×2 (09:02→09:05)
[2020-09-29] MEDS ORDERED: MORPHINE SULFATE 2 MG/1 ML DISP.SYRIN ONE (09:03)
[2020-09-29] MEDS ORDERED: MORPHINE SULFATE 4 MG/1 ML DISP.SYRIN ONE (09:03)
[2020-09-29 09:14] LABS: HEMATOCRIT 42.7 % (36.7-47.1); MEAN CORPUSCULAR HEMOGLOBIN 28.9 uug (23.8-33.4); MEAN CORPUSCULAR VOLUME 88.7 fL (73.0-96.2); PLATELET COUNT (AUTO) 253 K/uL (152-348)
[2020-09-29 09:16] LABS: POTASSIUM 3.7 mmol/L (3.5-5.1)
[2020-09-29 09:21] LABS: BILIRUBIN,DIRECT 0.6 mg/dL (0.0-0.2); TOTAL PROTEIN, SERUM 6.9 g/dL (6.4-8.2)
--- NOTE | 2020-09-29 09:37 | NUR ---
Pt. to CT
[2020-09-29 09:39] LABS: *BILIRUBIN,URIN NEGATIVE (NEGATIVE); *BLOOD, URINE NEGATIVE (NEGATIVE); *CLARITY,URINE CLEAR (CLEAR); *COLOR,URINE YELLOW (YELLOW); *KETONES,URINE 1+ (NEGATIVE); *UROBILINOGEN,URINE 0.2 E.U./dl (NORMAL); LEUKOCYTE ESTERASE ,URINE NEGATIVE (NEGATIVE); NITRITE, URINE NEGATIVE (NEGATIVE); PH,URINE 8.5 (5.0-8.0); UGLUCOSE NEGATIVE (NEGATIVE)
--- NOTE | 2020-09-29 09:51 | NUR ---
Pt back from CT
--- NOTE | 2020-09-29 10:28 | NUR ---
L/m with Dr. Haro's office for GI consult.
[2020-09-29] MEDS ORDERED: BUPR-96 PO (10:43)
[2020-09-29] MEDS ORDERED: LAMO100T2 PO (10:43)
[2020-09-29] MEDS ORDERED: ESCI20TA PO (10:43)
--- NOTE | 2020-09-29 11:15 | NUR ---
Called report to MARGARITA Paul. Awaiting physical bed to be in room.
--- NOTE | 2020-09-29 13:24 | NUR ---
Patient arrived to the floor via gurney from the ER. Patient is in bed with eyes closed, but easily arousable. No acute distress noted at this time. Dr. Brown notified of patient's arrival with no new orders at this time. Personal belongings and call light within easy reach. Will continue to monitor.
[2020-09-29] MEDS ORDERED: ZOLPIDEM 5 MG TABLET PO PRN (13:30)
[2020-09-29] MEDS ORDERED: IV NS 1000 ML 1,000 ML IV PRN (13:30)
[2020-09-29] MEDS ORDERED: ACETAMINOPHEN 325 MG TABLET PO PRN (13:30)
[2020-09-29] MEDS ORDERED: MORPHINE SULFATE 2 MG/1 ML DISP.SYRIN IV PRN (13:30)
[2020-09-29] MEDS ORDERED: Z GUARD REMEDY PASTE 57 GM TUBE TOP PRN (13:30)
[2020-09-29] MEDS ORDERED: MAGNESIUM HYDROXIDE 30 ML LIQUID UDC PO PRN (13:30)
[2020-09-29] MEDS ORDERED: ONDANSETRON 4 MG/2 ML VIAL IV PRN (13:30)
[2020-09-29 14:41] VITALS: BP 108/59
--- NOTE | 2020-09-29 20:10 | NUR ---
RECEIVED PATIENT AWAKE IN BED. A/O X4. C/O PAIN IN ABDOMEN. PT. GIVEN MORPHINE 2MG IV PRN PER FREIGHT SALES BROKER. VS WNL. IVF INFUSING WELL TO LEFT FA. CALL LIGHT IN REACH. ALL NEEDS ATTENDED. WILL CONTINUE TO MONITOR AND ASSESS.
[2020-09-29 21:42] VITALS: BP 117/69
--- NOTE | 2020-09-30 05:16 | NUR ---
PATIENT AWAKE IN BED. IV NOTED TO LEFT FA, INFILTRATED. REMOVED. PATIENT IS REFUSING FOR IV REINSERTION AND REFUSING FOR ANY MORE IVF. WILL NOTIFY MD. ALL NEEDS ATTENDED. WILL CONTINUE TO MONITOR AND ASSESS. PATIENT ALSO REFUSED AM LAB WORK. CLINICAL PROJECT ASSISTANT NOTIFIED.
[2020-09-30 05:34] VITALS: BP 118/63
--- NOTE | 2020-09-30 07:30 | NUR ---
Patient received with eyes closed, but easily arousable. Patient denies any pain or discomforts at this time. No acute distress noted at this time. Patient continues to refuse new IV access and IVF at this time, Dr. Brown is aware with no new orders at this time. Patient is alert and oriented x4, on room air with no SOB or difficulties breathing. Patient will have outpatient GI services and patient expresses understanding. Call light and personal belongings within easy reach. Will continue to monitor.
[2020-09-30 08:00] VITALS: BP 117/64
[2020-09-30] MEDS ORDERED: ESCITALOPRAM OXALATE 10 MG TABLET PO SCH (09:00)
[2020-09-30] MEDS ORDERED: Medication Not On Formulary EA (Escitalopram Oxalate (Lexapro) 20 MG) PO SCH (09:00)
[2020-09-30] MEDS ORDERED: FINASTERIDE 5 MG TABLET PO SCH (09:00)
[2020-09-30] MEDS ORDERED: LAMOTRIGINE 100 MG TABLET PO SCH (09:00)
[2020-09-30] MEDS ORDERED: buPROPion XL 150 MG TAB.SR.24H PO SCH (09:00)
[2020-09-30] MEDS ORDERED: TAMSULOSIN HCL 0.4 MG CAP.SR.24H PO SCH (09:00)
--- NOTE | 2020-09-30 12:45 | NUR ---
Patient states he ate his breakfast and lunch without any abdominal pain or upset. Patient denies N/V/D at this time. Will proceed with discharge as ordered.
--- NOTE | 2020-09-30 13:17 | NUR ---
Patient discharged in satisfactory condition with all his personal belongings. Patient was instructed to follow up with his primary care provider within a week and he stated that he already has an appointment with his GI specialist. All information was given to him and he expressed understanding. Escorted to the lobby in stable and satisfactory condition.
== END 2020-09-30 13:20 | disposition home or self-care (01) | DRG 444 ==
LOC: ER 08:47 → MEDSURG3 12:01
PROVIDERS: ADMIT Internal Medicine; ATTEND Internal Medicine
DX: K80.50 Calculus of bile duct without cholangitis or cholecystitis without obstruction (principal); K65.9 Peritonitis, unspecified; E87.0 Hyperosmolality and hypernatremia; K57.92 Diverticulitis of intestine, part unspecified, without perforation or abscess without bleeding; E86.1 Hypovolemia; E78.5 Hyperlipidemia, unspecified; F31.9 Bipolar disorder, unspecified; I10 Essential (primary) hypertension; N40.0 Benign prostatic hyperplasia without lower urinary tract symptoms; K29.70 Gastritis, unspecified, without bleeding; R74.01 Elevation of levels of liver transaminase levels; Z20.822 Contact with and (suspected) exposure to COVID-19
CPT/HCPCS: 36415; 70030-TC; 83690; 85025; 93005; A4663; G0378; J2270; J7030; J7050; Q9967

== ENCOUNTER 2020-10-19 16:14 | Emergency (ER) | payer BC ==
[~2020-10-19] VITALS: Ht 172.7 cm; Wt 88.5 kg
[~2020-10-19 16:14] MED LIST changes: +BUPR-96 PO; +ESCI20TA PO; +LAMO100T2 PO; -LISI1TAB55 PO; -ONDA4TAB5 SL; -OXYC-133 PO; -PANT40TA49 PO
--- NOTE | 2020-10-19 16:25 | NUR ---
Dr Soto at the bedside for MSE.
[2020-10-19] MEDS ORDERED: IV NORMAL SALINE 1000 ML BAG IV ONE (16:30)
[2020-10-19] MEDS ORDERED: ONDANSETRON 4 MG/2 ML VIAL IV ONE (16:30)
[2020-10-19] MEDS ORDERED: HYDROMORPHONE 1 MG/1 ML DISP.SYRIN IV ONE (16:30)
[2020-10-19] MEDS ORDERED: ONDANSETRON 4 MG/2 ML VIAL ONE (16:36)
[2020-10-19] MEDS ORDERED: HYDROMORPHONE 2 MG/1 ML DISP.SYRIN ONE (16:36)
[2020-10-19 17:11] LABS: HEMATOCRIT 43.9 % (36.7-47.1); MEAN CORPUSCULAR HEMOGLOBIN 28.8 uug (23.8-33.4); MEAN CORPUSCULAR VOLUME 89.1 fL (73.0-96.2); PLATELET COUNT (AUTO) 224 K/uL (152-348)
[2020-10-19 17:15] LABS: CREATININE 0.9 mg/dL (0.6-1.3)
[2020-10-19 17:21] LABS: BILIRUBIN,DIRECT 0.3 mg/dL (0.0-0.2); BILIRUBIN,TOTAL 0.6 mg/dL (0.2-1.0); TOTAL PROTEIN, SERUM 6.3 g/dL (6.4-8.2)
--- NOTE | 2020-10-19 17:30 | NUR ---
Pt states feeling so much better and wishes to go home, Dr Soto aware.
[2020-10-19 17:52] VITALS: BP 133/87
== END 2020-10-19 17:52 | disposition home or self-care (01) ==
LOC: ER 16:14
DX: K80.50 Calculus of bile duct without cholangitis or cholecystitis without obstruction (principal); F31.9 Bipolar disorder, unspecified; N40.0 Benign prostatic hyperplasia without lower urinary tract symptoms; E78.5 Hyperlipidemia, unspecified; Z79.899 Other long term (current) drug therapy
CPT/HCPCS: 76705; 80048; 80076; 83690; 85025; 96361; 96374; 96375; 99284; J1170; J2405; A4663; J7030

== ENCOUNTER 2022-03-10 16:10 | Emergency (ER) | payer SELFPAY ==
--- NOTE | 2022-03-10 16:40 | NUR ---
Attempted to triage, pt not in ER waiting room.
== END 2022-03-10 17:30 | disposition left against medical advice (07) ==
LOC: ER 16:13
DX: Z53.21 Procedure and treatment not carried out due to patient leaving prior to being seen by health care provider (principal)

== ENCOUNTER 2022-09-22 00:23 | Emergency (ER) | payer SELFPAY ==
[~2022-09-22] VITALS: Ht 172.7 cm; Wt 113.4 kg
[2022-09-22] MEDS ORDERED: IV NORMAL SALINE 1000 ML BAG IV ONE (00:45)
[2022-09-22 00:48] LABS: HEMATOCRIT 43.9 % (36.7-47.1); MEAN CORPUSCULAR HEMOGLOBIN 30.9 uug (23.8-33.4); MEAN CORPUSCULAR VOLUME 93.4 fL (73.0-96.2); PLATELET COUNT (AUTO) 279 K/uL (152-348)
[2022-09-22 00:54] LABS: CREATININE 1.1 mg/dL (0.6-1.3); POTASSIUM 3.2 mmol/L (3.5-5.1)
[2022-09-22 01:00] LABS: BILIRUBIN,TOTAL 0.2 mg/dL (0.2-1.0); MAGNESIUM 2.1 mg/dL (1.8-2.4)
[2022-09-22 01:04] LABS: ACETAMINOPHEN < 2.0 ug/mL (10-30)
--- NOTE | 2022-09-22 01:25 | NUR ---
Patient does not wish to proceed with medical care recommended by Dr. Neville. Patient given information related to possible complications, up to and including , which could occur as a result of leaving the hospital at this time. Patient verbalizes understanding of risks involved due to leaving against medical advice. Patient has signed AMA form. IV was removed and patient walked out with steady gait.
== END 2022-09-22 01:26 | disposition left against medical advice (07) ==
LOC: ER 00:23
DX: R10.84 Generalized abdominal pain (principal); R00.0 Tachycardia, unspecified; F19.90 Other psychoactive substance use, unspecified, uncomplicated; E78.5 Hyperlipidemia, unspecified; Z79.899 Other long term (current) drug therapy
CPT/HCPCS: 80053; 83735; 84100; 85025; 36415; 99283; 96360; 80299; 80320; J7040; A4663; G0480